=== PATIENT | female | born 1990 | race Two or more races ===

== ENCOUNTER 2022-08-21 08:32 | Outpatient (CLI) | payer OTHER | END 2022-08-21 10:00 | disposition home or self-care (01) | LOC: PRENATAL 08:32 | PROVIDERS: ATTEND Obstetrics & Gynecology Maternal & Fetal Medicine | DX: O26.849 Uterine size-date discrepancy, unspecified trimester (principal); O36.8199 Decreased fetal movements, unspecified trimester, other fetus; Z3A.32 32 weeks gestation of pregnancy ==

== ENCOUNTER 2022-09-20 10:36 | Inpatient (IN) | payer OTHER ==
[~2022-09-20] VITALS: Ht 152.4 cm; Wt 53.1 kg
[2022-09-20] MEDS ORDERED: PRENATABS RX T1 EACH PO (12:23)
[2022-09-22] MEDS ORDERED: NAPR500T14 PO (08:55)
== END 2022-09-22 12:32 | disposition home or self-care (01) | DRG 807 ==
LOC: LDR 10:36 → OB/GYN 10:36
PROVIDERS: ADMIT Obstetrics & Gynecology; ATTEND Obstetrics & Gynecology
PROC: 10E0XZZ Delivery of Products of Conception, External Approach (ICD-10-PCS; principal; 2022-09-20)
PROC: 0HQ9XZZ Repair Perineum Skin, External Approach (ICD-10-PCS; 2022-09-20)
PROC: 4A1HXCZ Monitoring of Products of Conception, Cardiac Rate, External Approach (ICD-10-PCS; 2022-09-20)
DX: O70.0 First degree perineal laceration during delivery (principal); Z37.0 Single live birth; Z3A.37 37 weeks gestation of pregnancy; Z20.822 Contact with and (suspected) exposure to COVID-19

== ENCOUNTER → 2024-09-10 15:39 | Outpatient (CLI) | payer OTHER ==
[~2024-09-10 15:39] MED LIST: NAPR500T14 PO; PRENATABS RX T1 EACH PO
== END | disposition home or self-care (01) ==
LOC: PRENATAL 15:39
PROVIDERS: ATTEND Obstetrics & Gynecology Maternal & Fetal Medicine
DX: O35.3XX0 Maternal care for (suspected) damage to fetus from viral disease in mother, not applicable or unspecified (principal); O44.00 Complete placenta previa NOS or without hemorrhage, unspecified trimester; Z3A.27 27 weeks gestation of pregnancy

== ENCOUNTER 2024-10-29 13:47 | Outpatient (CLI) | payer OTHER | END 2024-10-29 13:53 | disposition home or self-care (01) | LOC: PRENATAL 13:47 | PROVIDERS: ATTEND Obstetrics & Gynecology Maternal & Fetal Medicine | DX: O26.849 Uterine size-date discrepancy, unspecified trimester (principal); O36.8199 Decreased fetal movements, unspecified trimester, other fetus; O36.1999 Maternal care for other isoimmunization, unspecified trimester, other fetus; Z3A.32 32 weeks gestation of pregnancy ==

== ENCOUNTER 2024-11-23 15:50 | Inpatient (IN) | payer OTHER ==
[~2024-11-23] VITALS: Ht 152.4 cm; Wt 51.7 kg
[2024-11-23] VITALS (8 sets, daily range): BP systolic 97–127; BP diastolic 55–69
[2024-11-23] MEDS ORDERED: AMPICILLIN SODIUM 2,000 MG VIAL IV ONE (16:00)
[2024-11-23] MEDS ORDERED: RINGERS SOLUTION,LACTATED 1,000 ML IV SCH (16:00)
[2024-11-23 16:38] LABS: HEMATOCRIT 35.7 % (36.0-45.00); HEMOGLOBIN 11.9 g/dL (12.0-15.00); MEAN CELL VOLUME 84.5 fL (80.00-100.00); MEAN CORPUSCULAR HEMOGLOBIN 28.1 pg (27.00-32.0); MEAN CORPUSCULAR HGB CONC 33.3 g/dl (32.0-36.0); PLATELET COUNT 241 K/uL (150-450); RED BLOOD COUNT 4.23 M/uL (4.00-6.00); RED CELL DISTRIBUTION WIDTH 15.8 % (11.5-14.5)
[2024-11-23 16:40] LABS: URINE APPEARANCE Clear; URINE BILIRRUBIN Negative (NEGATIVE); URINE BLOOD Moderate; URINE COLOR Yellow; URINE GLUCOSE Negative (NEGATIVE); URINE KETONE 15 (NEGATIVE); URINE LEUKOCYTE Negative; URINE NITRATE Negative; URINE PROTEIN Negative (NEGATIVE); URINE UROBILINOGEN 0.2 E.U./dl
[2024-11-23 16:41] LABS: URINE BACTERIA 144.4 uL (0.0-1933); URINE EPITHELIAL CELLS 13.6 uL (0.0-38.8); URINE RBC 146.2 uL (0.0-20.8); URINE WBC 21.3 uL (0.0-23.2)
[2024-11-23 17:06] LABS: INR 0.94; PARTIAL THROMBOPLASTIN TIME 26.3 SECONDS (22.0-34.0); PROTHROMBIN TIME 10.3 SECONDS (9.0-11.5)
[2024-11-23 17:18] LABS: ALBUMIN 2.7 gm/dL (3.4-5.0); BILIRUBIN TOTAL 0.45 mg/dL (0.3-1.2); CALCIUM 8.8 mg/dL (8.5-10.1); CREATININE SERUM 0.44 mg/dL (0.55-1.02); GFR 163.68; GLOBULINA 4.3 G/DL (2.4-3.5); POTASSIUM 3.35 mEq/L (3.5-5.1)
[2024-11-23] MEDS ORDERED: OXYTOCIN 20 UNITS/1000ML RL PIGGYBAG IV ONE (17:40)
[2024-11-23] MEDS ORDERED: IBUprofen 400 MG TABLET PO PRN (18:15)
[2024-11-23] MEDS ORDERED: OXYTOCIN 1,000 ML IV SCH (18:15)
[2024-11-23] MEDS ORDERED: CHLORHEXIDINE GLUCONATE 120 ML BOTTLE TOP SCH (18:15)
[2024-11-23] MEDS ORDERED: ERYTHROMYCIN BASE OPHT 1GM EACH TUBE OP ONE (18:30)
[2024-11-24 01:05] VITALS: BP 99/62
[2024-11-24 08:00] VITALS: BP 90/60
[2024-11-24 16:24] VITALS: BP 98/65
[2024-11-25 00:48] VITALS: BP 98/75
[2024-11-25 08:00] VITALS: BP 95/62
[2024-11-25] MEDS ORDERED: NAPR500T14 PO (09:10)
== END 2024-11-25 13:45 | disposition home or self-care (01) | DRG 807 ==
LOC: OB/GYN 15:50 → LDR 15:50 → OB/GYN 17:27
PROVIDERS: ADMIT Obstetrics & Gynecology; ATTEND Obstetrics & Gynecology
PROC: 10E0XZZ Delivery of Products of Conception, External Approach (ICD-10-PCS; principal; 2024-11-23)
PROC: 4A1HXCZ Monitoring of Products of Conception, Cardiac Rate, External Approach (ICD-10-PCS; 2024-11-23)
DX: O99.824 Streptococcus B carrier state complicating childbirth (principal); Z37.0 Single live birth; Z3A.37 37 weeks gestation of pregnancy